=== PATIENT | female | born 1955 | race Caucasian/White ===

== ENCOUNTER 2021-06-06 19:05 | Emergency (ER) | payer OTHER, SELFPAY ==
[2021-06-06 19:25] VITALS: BP 190/90; PULSE 85; RESP 20; TEMP 36.6; O2SAT 96
[2021-06-06 21:16] VITALS: BP 181/99; PULSE 86; RESP 15; O2SAT 98
--- NOTE | 2021-06-06 21:35 | ED.WOUNDLAC ---
HPI - Wound/Laceration General Chief Complaint: Wound/Laceration Stated Complaint: states cat took chunk of left hand Time Seen by Provider: 06/06/21 19:06 Source: patient Mode of arrival: Ambulatory Limitations: no limitations History of Present Illness HPI narrative: 65-year-old female nonsmoker with noncontributory medical history presents with a wound on the dorsum of her left hand suffered just prior to arrival. She was interacting with her cat, and trying to put her in her crate when she turned and quickly ran away. When she pushed off with her hind legs her claws were extended and she suffered a superficial laceration on the dorsum of her left hand. There was minimal bleeding. Patient tetanus is up-to-date. She denies any numbness, tingling or weakness. Related Data Home Medications Medication Instructions Recorded Confirmed albuterol sulfate 90 mcg/actuation #0 05/13/12 08/17/19 aerosol inhaler (Proventil HFA) cholecalciferol (vitamin D3) PO 08/17/19 08/17/19 multivitamin 1 cap PO DAILY 08/17/19 08/17/19 pantoprazole PO 08/17/19 08/17/19 Previous Rx's Medication Instructions Recorded cephalexin 500 mg capsule 500 mg PO Q6H 7 Days #28 cap 06/06/21 Allergies Allergy/AdvReac Type Severity Reaction Status Date / Time No Known Drug Allergies Allergy Verified 08/17/19 11:52 Review of Systems Review of Systems Narrative: GENERAL: Denies chills, fatigue, malaise, fever, sweats. HEENT: Denies sinus pain, ear pain, sore throat, difficulty swallowing, dizziness. RESPIRATORY: Denies dyspnea, cough, wheezing, hemoptysis, sputum. CARDIOVASCULAR: Denies chest pain, palpitations, orthopnea, edema, GASTROINTESTINAL: Denies nausea, vomiting, abdominal pain, diarrhea, constipation, melena. : Denies dysuria, frequency, incontinence, hematuria, urinary retention. MUSCULOSKELETAL: denies weakness, joint pain, or bony pain SKIN: See HPI NEUROLOGIC: Denies weakness, headache, numbness, change in speech, confusion, seizures, incoordination. PSYCHIATRIC: No concerning psychosocial issues. 12 point review of systems is negative except for those stated above Patient History Medical History Bronchitis with asthma, acute Social History Smoking Status: Never smoker Smoking Status: Never smoker Substance Use Type: does not use Exam Narrative Exam Narrative: GEN: AOx3 and in mild distress EYES: Pupils are equal, round, and reactive to light and accommodation. Extraoccular muscles are intact bilaterally. There is no subconjunctival hemorrhage or exudate. CHEST: Lungs are clear to auscultation bilaterally and free of wheezes, rales, or rhonchi. Heart rate is regular rhythm, there are no murmurs, clicks, rubs, or gallops. There is no chest wall tenderness. ABD: Abdomen is soft and nontender. There is no guarding or rebound. Bowel sounds are normal in all 4 quadrants. There is no mass or organomegaly. EXT: Full painless ROM of all extremities with no loss of sensation or strength. SKIN: 1.0 cm superficial laceration on dorsum of left hand, more of flap or avulsion with a very thin layer skin which is not likely to accept sutures. No active bleeding or evidence of foreign body Warm, pink, and dry. No erythema or rash Initial Vital Signs Initial Vital Signs: Vital Signs Temperature 97.9 F 06/06/21 19:25 Pulse Rate 85 06/06/21 19:25 Respiratory Rate 20 06/06/21 19:25 Blood Pressure 190/90 H 06/06/21 19:25 Pulse Oximetry 96 06/06/21 19:25 Course Vital Signs Vital signs: Vital Signs - 8 hr 06/06/21 21:16 06/06/21 22:36 Pulse Rate 86 76 Respiratory Rate 15 15 Blood Pressure 181/99 H 181/92 H Pulse Oximetry 98 98 MDM - Wound/Laceration MDM Narrative Medical decision making narrative: Wound not appropriate for sutures, Steri-Strips placed by nursing. No evidence of foreign body. tetanus is current Discharge Plan Departure Patient Disposition: Home Clinical Impression: Avulsion of skin Instructions: DI for Laceration Repair-Skin Closure Strips Activity Restrictions/Additional Instructions: *You have been diagnosed with [superficial avulsion type laceration, not requiring sutures *What to do: *Please continue to take your regular medications as directed. [x ] New medication prescriptions sent to your pharmacy: [[facility] [place] ] [ ] New medication written as a paper prescription [ ] No new medications given *Please follow up with your primary care provider in 2-3 days, call for an appointment. Let them know you were seen in the Emergency Department and that we ask that you be seen in follow up. We will electronically transmit a record of today's note if your PCP is in our system *If you do not have a primary care provider please contact the [facility] Resource line at [phone]. They will ask some questions about your medical history and help get you set up with a doctor in the community. *Return to Emergency Department if you should have any new, worsening or concerning symptoms, such as [fever greater than 101 F, shaking chills, worsening pain, persistent vomiting or other bothersome symptoms] Prescriptions: New cephalexin 500 mg capsule 500 mg PO Q6H 7 Days Qty: 28 RF: 0 No Action pantoprazole PO RF: 0 cholecalciferol (vitamin D3) PO RF: 0 multivitamin Capsule 1 cap PO DAILY RF: 0 albuterol sulfate [Proventil HFA] 90 MCG/PUFF HFA aerosol inhaler Qty: 0 RF: 0 Referrals: Whit Abdul MD [Primary Care Provider] -
--- NOTE | 2021-06-06 22:34 | PC.NURSE ---
Placed steri strips over wound followed by telfa wrapped kerlix. instructed wound care with patient.
[2021-06-06 22:36] VITALS: BP 181/92; PULSE 76; RESP 15; O2SAT 98
== END 2021-06-06 22:37 | disposition home or self-care (01) ==
PROVIDERS: Emergency Provider Emergency Medicine; Family Provider Family Medicine; PCP Family Medicine
DX: S61.412A Laceration without foreign body of left hand, initial encounter (principal)
CPT/HCPCS: 99281